=== PATIENT | female | born 2005 | race Caucasian/White ===

== ENCOUNTER → 2025-05-08 18:40 | Outpatient (CLI) | payer OTHER, SELFPAY | PROVIDERS: Visit Provider Student in an Organized Health Care Education/Training Program | DX: J02.9 Acute pharyngitis, unspecified (principal) | CPT/HCPCS: 87070; 87147 ==

== ENCOUNTER 2025-07-14 07:49 | Inpatient (IN) | payer OTHER, SELFPAY ==
[2025-07-14] VITALS (76 sets, daily range): BP systolic 101–146; BP diastolic 55–87; PULSE 68–125; RESP 12–40; TEMP 33.9–37.6; O2SAT 95–100; BMI 30.2
[2025-07-14] MEDS: ETOMIDATE 2 MG/ML 10 ML VIAL 15 MG IV (07:58)
[2025-07-14] MEDS: SUCCINYLCHOLINE 200 MG/10 ML VIAL 150 MG IV (07:59)
--- NOTE | 2025-07-14 08:01 | EKG_ITS ---
[address] [address] Test Date: 2025-07-14 Pat Name: Maya Perkins Department: [facility] Room: Gender: Female Cardiologist: VERNON : 2005 Requested By: Order Number: [id number] Reading MD: Compa Ramon Measurements Intervals [place] Rate: 81 P: -13 DE: 152 QRS: 49 QRSD: 82 T: 20 QT: 380 QTc: 441 Interpretive Statements Normal sinus rhythm Electronically Signed On 07-14-2025 13:47:08 PDT by Compa Ramon
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
[2025-07-14] MEDS: fentaNYL 1,000 MCG in DEXTROSE 5% IN WATER 230 ML 30 MCG IV (08:25)
[2025-07-14] MEDS: SODIUM CHLORIDE 0.9% 1,000 ML 1000 ML IV (09:00)
[2025-07-14 09:09] LABS: Add Manual Diff / Slide Review NO; Hematocrit 38.8 % (36-46); Hemoglobin 13.0 g/dL (12.0-16.0); Lymphocytes Absolute Auto 1000 /uL (1100-4500); Mean Corpuscular HGB Conc 33.5 % (30-36); Mean Corpuscular Hemoglobin 29.0 PG (26-34); Mean Corpuscular Volume 86.7 fL (80-100); Platelet Count 189 X10^3/uL (150-400)
--- NOTE | 2025-07-14 09:10 | PC.NURSE ---
18F OG tube placed and secured.
[2025-07-14 09:18] LABS: INR 1.1 (0.9-1.3); Prothrombin Time 12.0 SECONDS (9.4-12.5)
[2025-07-14 09:19] LABS: Allen Test for ABG Passed? Positive; Blood Gas Collection Site Right Radial; Delivery System Adult Ventilator; HCO3 ABG 21 mmol/L (23-27); Oxygen Saturation ABG 100 % (95-100); PCO2 ABG 44.0 mmHg (35-45); PEEP 5; PO2 ABG 242 mmHg (80-100); TCO2 ABG 20 mmol/L (23-27)
[2025-07-14 09:21] LABS: PTT Partial Thromboplastin Tim 24 SECONDS (25.1-36.5)
[2025-07-14 09:22] LABS: Pregnancy Test Serum,Qual Negative (Negative)
[2025-07-14 09:23] LABS: Lactate (Lactic Acid) 3.0 mmol/L (0.7-2.1)
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
[2025-07-14 09:25] LABS: Acetaminophen < 10 ug/mL (10-30); Alanine Aminotransferase 15 IU/L (<35); Albumin 4.3 g/dL (3.5-5.0); Albumin Globulin Ratio 1.5 (1.0-2.8); Alkaline Phosphatase 62 U/L (38-126); Blood Urea Nitrogen 17 mg/dL (7-17); Calcium 8.8 mg/dL (8.4-10.2); Carbon Dioxide 14 mmol/L (22-32); Chloride 108 mmol/L (98-107); Creatine Kinase 52 U/L (30-135); Estimated Glomerular Filt Rate > 60 mL/min (>60); Ethanol (ETOH) < 10 mg/dL (<10); Globulin 2.9 g/dL (1.7-4.1); Glucose 124 mg/dL (70-99); HEMOLYSIS < 15 (0-50); Lipase 272 U/L (23-300); Potassium 4.7 mmol/L (3.4-5.1); Salicylate < 1.0 mg/dL (<20); Sodium 136 mmol/L (137-145); Total Protein 7.2 g/dL (6.3-8.2)
[2025-07-14] MEDS: SODIUM CHLORIDE 0.9% 1,000 ML 150 ML IV (09:26)
[2025-07-14 09:36] LABS: Troponin I < 0.012 ng/mL (0.01-0.034)
--- NOTE | 2025-07-14 09:42 | DI.RAD.S_ITS ---
PROCEDURE: XR ABDOMEN 1V INDICATIONS: OG placement TECHNIQUE: One view of the abdomen acquired. COMPARISON: None. FINDINGS: Surgical changes and devices: OG tube tip is in the expected location of proximal to mid stomach lumen below the left hemidiaphragm. Bowel: Bowel gas pattern is nonobstructive. No gross free air Soft tissues: No suspicious abdominal calcifications. Excreted contrast material is noted in bilateral renal collecting system. Visualized solid organ contours appear normal in size. Bones: No suspicious bony lesions. IMPRESSION: OG tube tip is in the stomach lumen. No gross pneumoperitoneum. Dictated by: Rafael Dominique M.D. on 07/14/2025 at 10:01 Approved by: Rafael Dominique M.D. on 07/14/2025 at 10:01
[2025-07-14 10:01] LABS: UR Morphine/Opiate cutoff 300 Negative (Negative); Ur Specific Gravity Normal (Normal); Urine MDMA Negative (Negative); Urine Methamphetamines Negative (Negative); Urine Tetrahydrocannabinol Negative (Negative); Urine Tricyclic Antidepressant Negative (Negative)
[2025-07-14 10:39] LABS: Reflexed Lactate in 2 Hours Y
[2025-07-14 11:04] LABS: Lactate 2HR (Lactic Acid Rflx) 1.0 mmol/L (0.7-2.1)
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
[2025-07-14] MEDS: HEPARIN 5,000 UNIT/ML VIAL 5000 UNIT SUBCUT ×2 (14:02→20:08)
[2025-07-14] MEDS: FAMOTIDINE 20 MG/2 ML VIAL IV ×2 (14:02→20:08)
[2025-07-14] MEDS: SODIUM CHLORIDE 0.9% 1,000 ML 100 ML IV ×2 (14:03→20:08)
[2025-07-14 15:15] LABS: MRSA (Nasal) PCR NOT DETECTED (Not Detect)
--- NOTE | 2025-07-14 17:01 | PC.NURSE ---
Addendum entered by Erica Moore RN 07/14/25 18:56: All cords and wires and other potential hazards not actively being used to pt monitoring removed from room. Paper gown requested. Pt's mother brought all pt's home medications to bedside, medications reviewed with Dr Ramon and then sent to pharmacy. Addendum entered by Erica Moore RN 07/14/25 18:30: Pt remains on constant 1:1 observation. Pt intermittently tearful, anxious, and tachycardic. Dr Ramon notified, see new orders. Original Note: Pt arrived from ED intubated and sedated on propofol and fentanyl. Propofol and fentanyl stopped per Dr Ramon to assess neurological status and attempt SBT. SBT initiated 1535. Pt tolerated SBT. Order received to extubate pt from Dr Ramon. Pt extubated 1630. Restraints discontinued and continuous patient safety monitoring initiated at this time. Pt quiet and tearful after extubation.
--- NOTE | 2025-07-14 17:06 | RT ---
Extubated patient @ 1435. Put patient on 2L nasal cannula. Pt is doing well and more alert.
[2025-07-14] MEDS: PROPRANOLOL 10 MG TABLET 20 MG PO (20:11)
[2025-07-14] MEDS: ACETAMINOPHEN 325 MG TABLET 650 MG PO (21:57)
[2025-07-15] VITALS (28 sets, daily range): BP systolic 89–124; BP diastolic 50–76; PULSE 69–91; RESP 13–24; TEMP 36.6–37.5; O2SAT 89–98
[2025-07-15] MEDS: SODIUM CHLORIDE 0.9% 1,000 ML 100 ML IV (05:46)
[2025-07-15] MEDS: ACETAMINOPHEN 325 MG TABLET 650 MG PO (05:58)
[2025-07-15] MEDS: SERTRALINE 50 MG TABLET PO (08:16)
[2025-07-15] MEDS: PROPRANOLOL 10 MG TABLET 20 MG PO ×3 (08:16→21:02)
[2025-07-15] MEDS: FAMOTIDINE 20 MG/2 ML VIAL IV (08:17)
[2025-07-15] MEDS: HEPARIN 5,000 UNIT/ML VIAL 5000 UNIT SUBCUT ×2 (08:17→21:02)
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
--- NOTE | 2025-07-15 17:53 | PC.NURSE ---
Day Shift Note Patient very drowsy this AM and slightly unsteady on feet when up to BSC. More alert and interactive as shift progressed, now steady on feet, able to walk into bathroom without issue and showered. Continuous 1:[address] due to pt continuing to score high risk in suicide/safety screening, Dr. Ramon aware. MomMariia, brought in additional medications from patient's home which were reviewed with Dr. Ramon and then sent to pharmacy. Pt off oxygen, RA with SpO2 96% and above. Denies pain. Denies nausea. Call light within reach. Pt able to make needs known.
[2025-07-15 18:08] LABS: Hematocrit 36.5 % (36-46); Hemoglobin 12.3 g/dL (12.0-16.0); Mean Corpuscular HGB Conc 33.7 % (30-36); Mean Corpuscular Hemoglobin 29.0 PG (26-34); Mean Corpuscular Volume 86.1 fL (80-100); Platelet Count 211 X10^3/uL (150-400)
[2025-07-15 18:31] LABS: Alanine Aminotransferase 13 IU/L (<35); Albumin 4.2 g/dL (3.5-5.0); Albumin Globulin Ratio 1.4 (1.0-2.8); Alkaline Phosphatase 61 U/L (38-126); Blood Urea Nitrogen 7 mg/dL (7-17); Calcium 9.4 mg/dL (8.4-10.2); Carbon Dioxide 23 mmol/L (22-32); Chloride 109 mmol/L (98-107); Estimated Glomerular Filt Rate > 60 mL/min (>60); Globulin 3.0 g/dL (1.7-4.1); Glucose 117 mg/dL (70-99); HEMOLYSIS < 15 (0-50); Potassium 3.7 mmol/L (3.4-5.1); Sodium 141 mmol/L (137-145); Total Protein 7.2 g/dL (6.3-8.2)
[2025-07-15] MEDS: FAMOTIDINE 20 MG TABLET PO (21:02)
[2025-07-15] MEDS: SODIUM CHLORIDE 0.9% FLUSH 10 ML IV (21:03)
[2025-07-16] VITALS (22 sets, daily range): BP systolic 94–117; BP diastolic 55–74; PULSE 63–84; O2SAT 92–98
[2025-07-16 07:35] LABS: Add Manual Diff / Slide Review NO; Hematocrit 36.1 % (36-46); Hemoglobin 12.3 g/dL (12.0-16.0); Lymphocytes Absolute Auto 2200 /uL (1100-4500); Mean Corpuscular HGB Conc 34.0 % (30-36); Mean Corpuscular Hemoglobin 29.2 PG (26-34); Mean Corpuscular Volume 85.9 fL (80-100); Platelet Count 217 X10^3/uL (150-400)
[2025-07-16 07:51] LABS: Alanine Aminotransferase 11 IU/L (<35); Albumin 4.2 g/dL (3.5-5.0); Albumin Globulin Ratio 1.4 (1.0-2.8); Alkaline Phosphatase 61 U/L (38-126); Blood Urea Nitrogen 7 mg/dL (7-17); Calcium 9.4 mg/dL (8.4-10.2); Carbon Dioxide 22 mmol/L (22-32); Chloride 106 mmol/L (98-107); Estimated Glomerular Filt Rate > 60 mL/min (>60); Globulin 3.1 g/dL (1.7-4.1); Glucose 86 mg/dL (70-99); HEMOLYSIS < 15 (0-50); Potassium 3.8 mmol/L (3.4-5.1); Sodium 138 mmol/L (137-145); Total Protein 7.3 g/dL (6.3-8.2)
[2025-07-16] MEDS: FAMOTIDINE 20 MG TABLET PO (08:43)
[2025-07-16] MEDS: PROPRANOLOL 10 MG TABLET 20 MG PO ×2 (08:43→15:46)
[2025-07-16] MEDS: HEPARIN 5,000 UNIT/ML VIAL 5000 UNIT SUBCUT (08:44)
[2025-07-16] MEDS: SERTRALINE 50 MG TABLET PO (08:44)
[2025-07-16] MEDS: SODIUM CHLORIDE 0.9% FLUSH 10 ML IV (08:48)
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
--- NOTE | 2025-07-16 10:57 | CM.SWNOTE ---
Addendum entered by Eloina Romero TALISHA 07/16/25 12:51: ADD: DCR talking with patient now- 1230. Original Note: DCP Cont Reviewed chart, patient discussed in multidisciplinary rounds. Patient is medically cleared and asks that DCR be called for dispatch. Met w/patient and mom at bedside, permission to continue with mom present. Explained that based on the severity of the suicide attempt, and concern that if discharged home patient is at high risk for reattempt or completion of suicide, provider would like DCR dispatch to evaluate for detainment to inpatient psychiatric unit. Patient continues to decline voluntary placement at inpatient psychiatric unit. No further questions for this APPLICATION SUPPORT LEAD, mom states she had her questions answered by social studies teacher yesterday. Placed call to MIRYAM Lewis [phone]; reviewed this case with Abelino in triage - Abelino plans to contact DCR to request dispatch. DCR will follow up with this APPLICATION SUPPORT LEAD. Faxed clinical packet including DC Summary to DCR at F [phone]. Bedside RN updated. COVID swab pending. EDD
[2025-07-16 11:19] LABS: COVID19 -Nasal RAPID Negative (Negative)
--- NOTE | 2025-07-16 16:01 | CM.DPNOTE ---
DC Note SCOTT Valdez, completed her eval and patient was not detained- patient now agreeable to discharge to an inpatient unit voluntarily. Discussed this case with [facility], faxed clinical packet and patient has been accepted for admission this evening. Details as follows: Accepted to [facility]. Nurse to Nurse report is P [phone] (ask for [place] W2) Accepting provider is Sandy Jay DNP protective signal operations supervisor is scheduled [facility] for 7:50p. COBRA form completed, signed by Dr Mueller, patient and this CERTIFIED SURGICAL TECH/FIRST ASSISTANT with accepting facility information. Patient remains agreeable to plan. Mom is going to grab personal items from patient's apt. Provided the What to Expect, Things to Pack, Admission info etc to mom- printed from [facility] website. Bedside RN updated. Plan: Discharge to [facility] inpatient psychiatric unit via BLS berry picker machine operator 7:50 pm. EDD
--- NOTE | 2025-07-16 18:21 | PC.NURSE ---
Addendum entered by Velma Petty RN 07/16/25 18:33: Home meds from pharmacy outside patient room ready to go with transport. Original Note: Day Shift Patient calm and cooperative, able to make needs known. Continues to be assessed at high risk for safety/suicide so continuous 1:[address] Pt awaiting transport to [place]. Attempted to call nurse to nurse report x2 with no success.
== END 2025-07-16 20:45 | DRG 923 ==
LOC: ED 11:49 → AC 11:58 → ICU 12:25
PROVIDERS: Admitting Provider Hospitalist; Emergency Provider Emergency Medicine; Referring Provider Emergency Medicine; Visit Provider Hospitalist
DX: T75.1XXA Unspecified effects of drowning and nonfatal submersion, initial encounter (principal); T50.902A Poisoning by unspecified drugs, medicaments and biological substances, intentional self-harm, initial encounter; T68.XXXA Hypothermia, initial encounter; F17.200 Nicotine dependence, unspecified, uncomplicated; F31.9 Bipolar disorder, unspecified; R00.0 Tachycardia, unspecified; X71.3XXA Intentional self-harm by drowning and submersion in natural water, initial encounter; X31.XXXA Exposure to excessive natural cold, initial encounter
CPT/HCPCS: 31500; 36415; 36600; 70450; 71275; 72125; 74018; 74177; 80053; 80305; 80320; 80329; 82550; 82805; 82962; 83605; 83690; 84484; 84703; 85025; 85027; 85610; 85730; 86850; 86900; 86901; 87635; 87797; 93005; 94010; 94799; 96365; 96366; 96375; 96376; 99284; 99291; A9270; G0390; G0480; J0330; J1644; J2060; J2704; J3010; Q9967